=== PATIENT | female | born 1990 | race African-American/Black ===

== ENCOUNTER 2018-05-29 14:39 | Emergency (ER) | payer OTHER, MEDICAID ==
[~2018-05-29] VITALS: Ht 172.7 cm; Wt 65.8 kg
--- NOTE | 2018-05-29 15:11 | NUR ---
ED Nurse Note: pt encouraged to obtain urine sample. states she cannot void now. eval by with mother present at pt request
--- NOTE | 2018-05-29 15:16 | Emergency Room Report ---
History of Present Illness General Chief Complaint: Behavioral Complaint Source: Patient (Herve Verdugo MD) Present Illness HPI Patient is a 27-year-old female brought in by mom after increased suicidal thoughts. Patient reportedly had been using cocaine for the past few days. She states she had no recent use in the last 24 hours. She reports having prior history of anxiety and had been taking Xanax. Patient reports having increased suicidal thoughts. Patient had prior psychiatric hospitalizations after attempted overdoses. She reports having prior history of depression.Patient had prior deep brain stimulator placement for tardive dyskinesia. Patient was not noted to be on any antipsychotic medications.Patient states that she overdosed on Xanax earlier in the day. (Herve Verdugo MD) Allergies: Coded Allergies: PENICILLINS (Verified Allergy, Unknown, 05/29/18) Patient History Past Medical History: see triage record Last Menstrual Period: last week Now: No Reviewed Nursing Documentation: PMH: Agreed; PSxH: Agreed (Herve Verdugo MD) Nursing Documentation-PMH Past Medical History: No History, Except For History Of Psychiatric Problem: Yes - depression Hx Neurological Problems: Yes - dystonia (Herve Verdugo MD) Review of Systems All Other Systems: negative except mentioned in HPI (Herve Verdugo MD) Physical Exam Vital Signs Date Time Temp Pulse Resp B/P (MAP) Pulse Ox O2 Delivery O2 Flow Rate FiO2 05/29/18 14:52 97.2 112 20 111/70 98 Room Air Sp02 EP Interpretation: reviewed, normal General Appearance: alert/responsive, no apparent distress, GCS 15, non-toxic Head: atraumatic Eyes: PERRL, lids + conjunctiva normal ENT: hearing intact, no angioedema Neck: supple/symm/no masses, no meningismus Respiratory: effort normal, no wheezing, chest symmetrical Cardiovascular: regular rate, rhythm, no edema Cardiovascular #2: 2+ carotid (R), 2+ carotid (L), 2+ dorsalis pedis (R), 2+ dorsalis pedis (L) Gastrointestinal: non-tender, no mass, non-distended, no rebound/guarding, normal bowel sounds Musculoskeletal: gait & station normal, strength & tone normal, normal ROM, non -tender Neurologic: normal inspection, CN II-XII intact, oriented x3, sensory intact, normal speech Psychiatric: other Skin: no rash, well hydrated Lymphatic: normal inspection (Herve Verdugo MD) Medical Decision Making Diagnostic Impression: Primary Impression: Polysubstance abuse Additional Impression: Suicidal thoughts ER Course Presented for increased suicidal thoughts. Differential diagnoses include substance abuse, psychosis, bipolar disorder, depression, malingering. Because of complexity of patient's case laboratory testing and imaging studies were ordered. Patient appears to be in no apparent distress. She reports having some suicidal thoughts.Laboratory testing showed evidence of urine dressing positive for cocaine as well as benzodiazepines. Patient does not appear to be excessively sedated.Patient was medically cleared for psychiatric placement. Labs Test 05/29/18 16:09 05/29/18 16:16 Urine Color Yellow Urine Appearance Slightly cloudy Urine pH 5 (4.5-8.0) Urine Specific [place] 1.025 (1.005-1.035) Urine Protein 1+ (NEGATIVE) Urine Glucose (UA) Negative (NEGATIVE) Urine Ketones 1+ (NEGATIVE) Urine Blood Negative (NEGATIVE) Urine Nitrite Negative (NEGATIVE) Urine Bilirubin Negative (NEGATIVE) Urine Urobilinogen 1 MG/DL (0.0-1.0) Urine Leukocyte Esterase 2+ (NEGATIVE) Urine RBC 2-4 /HPF (0 - 2) Urine WBC 2-4 /HPF (0 - 2) Urine Squamous Epithelial Cells Many /LPF (NONE/OCC) Urine Bacteria Few /HPF (NONE) Urine Mucus Many /LPF (NONE/OCC) Urine HCG, Qualitative Negative (NEGATIVE) Urine Opiates Screen Negative (NEGATIVE) Urine Barbiturates Screen Negative (NEGATIVE) Phencyclidine (PCP) Screen Negative (NEGATIVE) Urine Amphetamines Screen Negative (NEGATIVE) Urine Benzodiazepines Screen Positive (NEGATIVE) Urine Cocaine Screen Positive (NEGATIVE) Urine Marijuana (THC) Screen Negative (NEGATIVE) White Blood Count 8.6 K/UL (4.8-10.8) Red Blood Count 4.59 M/UL (4.20-5.40) Hemoglobin 13.4 G/DL (12.0-16.0) Hematocrit 38.8 % (37.0-47.0) Mean Corpuscular Volume 85 FL (80-99) Mean Corpuscular Hemoglobin 29.2 PG (27.0-31.0) Mean Corpuscular Hemoglobin Concent 34.5 G/DL (32.0-36.0) Red Cell Distribution Width 12.0 % (11.6-14.8) Platelet Count 382 K/UL (150-450) Mean Platelet Volume 5.3 FL (6.5-10.1) Neutrophils (%) (Auto) 60.6 % (45.0-75.0) Lymphocytes (%) (Auto) 26.7 % (20.0-45.0) Monocytes (%) (Auto) 6.4 % (1.0-10.0) Eosinophils (%) (Auto) 5.0 % (0.0-3.0) Basophils (%) (Auto) 1.2 % (0.0-2.0) Sodium Level 138 MMOL/L (136-145) Potassium Level 3.7 MMOL/L (3.5-5.1) Chloride Level 101 MMOL/L (98-107) Carbon Dioxide Level 27 MMOL/L (21-32) Anion Gap 10 mmol/L (5-15) Blood Urea Nitrogen 9 mg/dL (7-18) Creatinine 0.9 MG/DL (0.55-1.30) Estimat Glomerular Filtration Rate > 60 mL/min (>60) Glucose Level 90 MG/DL (74-106) Calcium Level 8.7 MG/DL (8.5-10.1) Total Bilirubin 0.2 MG/DL (0.2-1.0) Aspartate Amino Transf (AST/SGOT) 13 U/L (15-37) Alanine Aminotransferase (ALT/SGPT) 23 U/L (12-78) Alkaline Phosphatase 77 U/L (46-116) Total Protein 7.4 G/DL (6.4-8.2) Albumin 3.6 G/DL (3.4-5.0) Globulin 3.8 g/dL Albumin/Globulin Ratio 0.9 (1.0-2.7) Salicylates Level 1.6 ug/mL (2.8-20) Acetaminophen Level < 2 MCG/ML (10-30) Serum Alcohol < 3 mg/dL (Herve Verdugo MD) ER Course Please see above note. Patient evaluated by me. She states she takes Xanax, no other meds. She states her Mom is due to come to take her to a rehab facility. She denies SI or HI at this time. Xanax given. Placed on 5150 by mental health RN. Transferred to facility. (Jluis Odell MD) Last Vital Signs Date Time Temp Pulse Resp B/P (MAP) Pulse Ox O2 Delivery O2 Flow Rate FiO2 05/29/18 14:52 97.2 112 20 111/70 98 Room Air Status: improved (Herve Verdugo MD) Last Vital Signs Date Time Temp Pulse Resp B/P (MAP) Pulse Ox O2 Delivery O2 Flow Rate FiO2 05/30/18 12:08 98.1 86 15 131/77 99 Room Air Status: improved (Jluis Odell MD) Disposition: XFER TO PSYCH HOSP/UNIT Condition: Stable Scripts No Active Prescriptions or Reported Meds Herve Verdugo MD May 29, 2018 15:16 Jluis Odell MD May 30, 2018 06:49
--- NOTE | 2018-05-29 15:43 | NUR ---
ED Nurse Note:urine sent to labs ,personal belongings placed in locker #1
--- NOTE | 2018-05-29 15:55 | NUR ---
ED Nurse Note: Received patient from Danae RAMIREZ. patient is alert awake x4 ambulatory. patient reports dystonia, since she was young. patient reports being depressed, patient relates that she needs help, as she is dealing with recent incident of her "ex boyfriend commited suicide." she does not have any plans for SI and denies SI at this moment.
[2018-05-29 15:59] VITALS: BP 111/70
--- NOTE | 2018-05-29 16:21 | NUR ---
ED Nurse Note: Contacted nursing supervior for sitter.
--- NOTE | 2018-05-29 16:35 | NUR ---
ED Nurse Note: provided patient with sandwich and juice
[2018-05-29 16:39] LABS: BASOPHILS % (AUTO) 1.2 % (0.0-2.0); HEMATOCRIT 38.8 % (37.0-47.0); HEMOGLOBIN 13.4 G/DL (12.0-16.0); LYMPHOCYTES % (AUTO) 26.7 % (20.0-45.0); MEAN CORPUSCULAR VOLUME 85 FL (80-99); MONOCYTES % (AUTO) 6.4 % (1.0-10.0); NEUTROPHILS % (AUTO) 60.6 % (45.0-75.0); PLATELET COUNT 382 K/UL (150-450); RED BLOOD COUNT 4.59 M/UL (4.20-5.40); WHITE BLOOD COUNT 8.6 K/UL (4.8-10.8)
[2018-05-29 16:45] LABS: APPEARANCE,URINE SLIGHTLY CLOUDY; BILIRUBIN, URINE NEGATIVE (NEGATIVE); GLUCOSE, URINE (UA) NEGATIVE (NEGATIVE); KETONES,URINE 1+ (NEGATIVE); LEUKOCYTE ESTERASE ,URINE 2+ (NEGATIVE); NITRITE,URINE NEGATIVE (NEGATIVE); PH,URINE 5 (4.5-8.0); PROTEIN,URINE 1+ (NEGATIVE); UROBILINOGEN,URINE 1 MG/DL (0.0-1.0)
[2018-05-29 16:48] LABS: COLOR,URINE YELLOW
[2018-05-29 16:50] LABS: ANION GAP 10 mmol/L (5-15); BLOOD UREA NITROGEN 9 mg/dL (7-18); CALCIUM 8.7 MG/DL (8.5-10.1); CARBON DIOXIDE 27 MMOL/L (21-32); CHLORIDE 101 MMOL/L (98-107); CREATININE 0.9 MG/DL (0.55-1.30); POTASSIUM 3.7 MMOL/L (3.5-5.1); SODIUM 138 MMOL/L (136-145)
[2018-05-29 16:55] LABS: ALANINE AMINOTRANSFERASE 23 U/L (12-78); ALBUMIN 3.6 G/DL (3.4-5.0); ALBUMIN/GLOBULIN RATIO 0.9 (1.0-2.7); ALKALINE PHOSPHATASE 77 U/L (46-116); ASPARTATE AMINO TRANSFERASE 13 U/L (15-37); BILIRUBIN,TOTAL 0.2 MG/DL (0.2-1.0)
[2018-05-29] MEDS ORDERED: ALPRAZolam 0.5mg tab ORAL ONE (18:15)
[2018-05-29 18:40] VITALS: BP 111/70
--- NOTE | 2018-05-29 19:07 | NUR ---
HAND-OFF: Report given to JEFFY RAMIREZ. PATIENT IS STABLE IN BED ALERT AND AWAKE
--- NOTE | 2018-05-29 19:35 | NUR ---
ED Nurse Note: patient is in the bed sleeping, no acute disstress noticed.
[2018-05-29 19:40] VITALS: BP 111/70
[2018-05-29 22:47] VITALS: BP 125/65
--- NOTE | 2018-05-30 01:25 | NUR ---
ED Nurse Note: Patient woke up, use bathroom. AAO x4, VSS at this time, no acute disstress noticed.
[2018-05-30 02:29] VITALS: BP 122/68
--- NOTE | 2018-05-30 03:10 | NUR ---
ED Nurse Note: Patient keep asking for updates. Per patient her mom will pick her up at this morning and place her in REhab.
[2018-05-30 06:09] VITALS: BP 107/75
--- NOTE | 2018-05-30 06:12 | NUR ---
ED Nurse Note: patient is awake, asking to go home. She is mad, depressed, asks for her rights. Per patient she Googled it and demanding to let us to go home, since she is not on a 5150 hold.
[2018-05-30 07:15] VITALS: BP 107/75
--- NOTE | 2018-05-30 07:15 | NUR ---
ED Nurse Note: breakfast tray provide. pt lying in left side with eye closed. no facial grimacing or moaning noted. pt appears to be calm. AAO x4. respirations even and non-labored noted. pt denies SI/HI. no plan. denies hearing any things or seeing. RN made verbal contract to stay in safe while staying in ED. pt has cellphone and jewerlys on her to calm. per pt, ex-boyfriend commited suicide and makes her depressed. will wait for the placement.
--- NOTE | 2018-05-30 08:20 | NUR ---
ED Nurse Note: pt became agitated and ask for anxiety med. RN notified to Dr. Odell. will wait for the order.
[2018-05-30] MEDS ORDERED: ALPRAZolam 0.5mg tab ORAL ONE (08:30)
--- NOTE | 2018-05-30 09:48 | NUR ---
ED Nurse Note: pt will be transferred to [facility] will wait for the ambulance.
[2018-05-30 12:08] VITALS: BP 131/77
--- NOTE | 2018-05-30 12:10 | NUR ---
ED Nurse Note: pt transferred to [facility] by [facility] unit #[id number].
== END 2018-05-30 12:15 ==
LOC: EMR 15:33
DX: F19.10 Other psychoactive substance abuse, uncomplicated (principal); R45.851 Suicidal ideations; F32.9 Major depressive disorder, single episode, unspecified; Z88.0 Allergy status to penicillin
CPT/HCPCS: 36415; 80053; 80307; 81003; 81025; 85025; 99284; G0480; 80329